=== PATIENT | male | born 1945 | race Caucasian/White ===

== ENCOUNTER → 2017-01-16 | Outpatient (CLI) | payer OTHER, MEDICARE ==
[~2017-01-16] MED LIST: ACCUNEB0.63 MG/3 IH; ADVAIR 500-501 EACH INH; ASPIRIN325 PO; ATENOLOL 25MG T25 M1 PO; CALCIUM 600 +1 EAC5 PO; CARTIA XT PO; CEFTIN 250250 MG/5 M PO; CLONAZEPAM 0.50.5 M1 PO; ELIQUIS5 MG PO; FINASTERIDE5 MG PO; FISH OIL 1,0001 EAC9 PO; FUROSEMIDE 40 M40 M1 PO; IBUPROFEN 200200 M1 PO; LEVAQUIN 500 M500 M2 PO; LEVOTHYROXIN0.025 MG PO; LIVALO2 MG PO; LO-DOSE ASPIRIN81 M1 PO; MIRAPEX 0.250.25 M1 PO; MUCINEX600 MG PO; NEURONTIN 300300 M1 PO; OMEPRAZOLE 20 M20 MG PO; PACERONE 200 M200 M1 PO; POTASSIUM20 PO; PRADAXA150 MG PO; PREDNISONE 5 MG5 M1 PO; PROAIR HFA8.5 GM IH; SPIRIVA INH; TAMSULOSIN HCL0.4 MG PO; VENTOLIN HFA 1818 GM INH; ZPAK PO; ZYRTEC10 M2 PO; [UNRECOGNIZED DRUG - OTHER] PO
== END ==
LOC: MRI 11:46
DX: L97.522 Non-pressure chronic ulcer of other part of left foot with fat layer exposed (principal); M10.072 Idiopathic gout, left ankle and foot

== ENCOUNTER 2017-01-26 05:56 | Day surgery (SDC) | payer OTHER, MEDICARE ==
[~2017-01-26] VITALS: Ht 185.4 cm; Wt 90.7 kg
--- NOTE | ~2017-01-26 | S ---
[facility] [address] [place] [address] SURGICAL PATH RPT PROCEDURE Name: ANDI JEROME Room #: 150-4 [facility] M.R.#: [id number] Admission: 01/26/17 Date of : 43 Discharge: Report #: [id number] Path Case #: [id number] PATHOLOGY REPORT DRAFT COLLECTION DATE: 01/26/2017 RECEIVED DATE: 01/26/2017 SPECIMEN(S) RECEIVED: A.Left third toe
[~2017-01-26 05:56] MED LIST changes: +ALBUTEROL2.5 MG/31 INH; +ASPIRIN PO; +ATENOLOL PO; +CEPHALEXIN500 MG PO; +IBUPROFEN200 M2 PO; +MIRAPEX1 MG PO; +OXYGEN NASAL; +PACERONE 200 M200 MG PO
[2017-01-26 11:29] LABS: HEMATOCRIT 45.3 % (42.0-52.0); MCH 35.2 pg (26.0-34.0); MCHC 35.3 g/dL (28.0-37.0); MCV 99.7 fL (80.0-100.0); RBC 4.54 mil/uL (4.50-6.00); RDW 13.3 % (10.5-14.5); WBC 12.7 thou/uL (4.0-11.0)
[2017-01-26 11:37] LABS: CREATININE 1.3 mg/dL (0.7-1.3); POTASSIUM 4.1 mmol/L (3.5-5.1)
[2017-01-26 12:00] VITALS: BP 126/88
== END 2017-01-26 13:50 ==
LOC: OR 05:56 → TBA 05:56 → OR 13:09
PROVIDERS: Podiatrist Foot & Ankle Surgery
DX: S43.084A Other dislocation of right shoulder joint, initial encounter (principal); X58.XXXA Exposure to other specified factors, initial encounter; Y93.89 Activity, other specified; Y92.89 Other specified places as the place of occurrence of the external cause; Y99.8 Other external cause status
CPT/HCPCS: 50010; 50101; 50386; 57091; 70005

== ENCOUNTER 2017-06-10 12:28 | Inpatient (IN) | payer OTHER, MEDICARE ==
[~2017-06-10] VITALS: Ht 188 cm; Wt 104.3 kg
--- NOTE | ~2017-06-10 | HC ---
[facility] [place] [address] CONSULTATION Name: ANDI JEROME Room #: 443-P [facility] IN M.R.#: [id number] Admission: 06/10/17 Attend Phys: Mukund Burch MD Discharge: Date of : 43 Report #: [id number] THIS REPORT FOR: //name// CC: Mukund Muhammad REASON FOR CONSULTATION: I was asked to evaluate concerning right lower extremity cellulitis. HISTORY OF PRESENT ILLNESS: The patient is a 71-year-old with chronic lymphedema. He has had outpatient workup without any specific correctable etiology. He has had vascular workup. He does have atrial fibrillation, but no ongoing congestive heart failure. No renal disease noted. He has had increasing swelling involving his right lower extremity greater than his left. He developed increased erythema without fever or chills. He has moderate amount of tenderness in his right pretibial skin. He does have degenerative arthritis and has had cortisol injections in his joint. He does take prednisone on a daily basis. ALLERGIES: AMOXICILLIN with rash, does tolerate cephalosporins. MEDICATIONS: As noted on his MAR including vancomycin. His other medications as noted on his MAR. PAST MEDICAL HISTORY: COPD, atrial fibrillation, cardiomyopathy, peripheral neuropathy, C5 disk disease, right foot fracture, cataract surgery, bilateral inguinal herniorrhaphy, hemorrhoidectomy, hypothyroid, and TURP. FAMILY HISTORY: Noncontributory. SOCIAL HISTORY: He is a past smoker, no significant alcohol intake. REVIEW OF SYSTEMS: Denies any cough, sputum, nausea, vomiting, diarrhea, dysuria, or frequency. PHYSICAL EXAMINATION: VITAL SIGNS: He is afebrile, hemodynamically stable. GENERAL: He is alert and cooperative and pleasant, in no acute distress. HEENT: Unremarkable. NECK: Supple. No adenopathy. LUNGS: Clear. HEART: Regular, without murmur. ABDOMEN: Soft, without any hepatosplenomegaly or mass. EXTREMITIES: Left lower extremity had 2+ edema with compression wraps in place. Right lower extremity had 4+ edema with erythema extending from his toes up to his proximal calf. He had tenderness in the pretibial skin. No ulcerations. No tinea pedis. No lymphangitis medial thigh. No groin [address] [address] CONSULTATION Name: ANDI JEROME Room #: 443-P [facility] IN [facility].#: [id number] Admission: 06/10/17 Attend Phys: Mukund Burch MD Discharge: Date of : 43 Report #: [id number] tenderness. He had decreased sensation in both feet. LABORATORY STUDIES: Sodium 139, potassium 3.7, bicarb of 34, and creatinine 1.1. Hemoglobin 13, platelet count 233,000, and white count 7.7 with 73% segs. Vancomycin trough 14. Urinalysis unremarkable. Ultrasound of the right lower extremity negative for DVT. Chest x-ray with no acute infiltrates. IMPRESSION: A 71-year-old with chronic lymphedema, associated cellulitis with peripheral neuropathy. He had adequate pulses in his foot. His outpatient workup failed to identify any venous abnormalities per the patient report. Suspecting cardiac etiology or primary lymphatic disease. He does have a patent foramen ovale and an atrial septal aneurysm. The patient is also allergic to AMOXICILLIN. Recommend continue his antibiotic coverage with cefazolin. He will need more leg elevation and diuretics to control his edema. Once this is under control, can begin compression when the patent is up. I discussed with the patient and his different modalities to control his edema once he gets discharged. In the meantime, we will use strict bed elevation to control swelling. <ELECTRONICALLY SIGNED> By: Newton Rodriguez MD 06/13/17 1808 1820 1249 Newton Rodriguez MD /nt
--- NOTE | ~2017-06-10 | D ---
[facility] [place] [address] DISCHARGE SUMMARY Name: QUEENIERADHA Room #: 443-P [facility] IN M.R.#: [id number] Admission: 06/10/17 Attend Phys: Mukund Burch MD Discharge: 06/15/17 Date of : 43 Report #: [id number] THIS REPORT FOR: //name// CC: Mukund Muhammad DATE OF SERVICE: 06/15/2017 HISTORY OF PRESENT ILLNESS: The patient is a 71-year-old man who was admitted to the hospital for right lower extremity cellulitis. Please refer to the admission H and P for details. HOSPITALIZATION COURSE: The patient was hospitalized at [facility]. Initially, the patient was treated with vancomycin. Infectious Disease specialist was consulted. The patient was switched to the Ancef. The patient has chronic lower extremity swelling, and he also has a history of congestive heart failure with diastolic dysfunction. Doppler of the lower extremity was obtained that showed no DVT. With diuretics as well as lower extremity wraps, his swelling improved significantly. With the reduction of his swelling, cellulitis also started to improve. This morning, his erythema has almost resolved. The patient has no pain. He feels comfortable and he is at baseline. He will be discharged home on oral antibiotics, and follow up in the lymphedema clinic. DISCHARGE DIAGNOSES: 1. Right lower extremity cellulitis, much better. 2. Chronic lymphedema, will be treated as an outpatient in lymphedema clinic. Diuretics will be continued. SECONDARY DIAGNOSES: Include congestive heart failure with diastolic dysfunction, history of atrial fibrillation, anticoagulated with Eliquis. Hypothyroidism, chronic obstructive pulmonary disease. DISCHARGE MEDICATIONS: Please refer to the medication reconciliation list. The patient will be treated with Keflex for 10 days for his right lower extremity cellulitis. DISPOSITION: The patient is discharged to home. FOLLOWUP PLAN: [facility] [address] [place] [address] DISCHARGE SUMMARY Name: ANDI JEROME Room #: 443-P [facility]#: [id number] Admission: 06/10/17 Attend Phys: Mukund Burch MD Discharge: 06/15/17 Date of : 44 Report #: [id number] 1. Follow up with the primary care physician in 1-2 weeks. 2. Follow up in lymphedema clinic. By: 1052 30 Jagdish Power MD /nt
--- NOTE | ~2017-06-10 | EKG ---
[address] [address] ELECTROCARDIOGRAM REPORT Name: ANDI JERMOE Room #: 443- ADM IN M.R.#: [id number] Admission: 06/10/17 Attend Phys: Mukund Burch MD Discharge: Date of : 43 Report #: [id number] THIS REPORT FOR: //name// [facility] Test Date: 2017-06-11 Test Time: 09:03:44 Pat Name: ANDI JEROME Department: Room: 443 Gender: M Manager Care: RON : 1945 Requested By: Viviana Brown Order Number: [id number] MD: Trey Arceo Measurements Intervals [place] Rate: 70 P: 63 MA: 190 QRS: 41 QRSD: 104 T: 79 QT: 406 QTc: 439 Interpretive Statements Sinus rhythm Atrial premature complexes Low voltage, extremity leads Baseline wander in lead(s) V3 Compared to ECG 02/15/2012 15:06:28 Atrial premature complex(es) now present Electronically Signed On 06-11-2017 11:39:27 CDT by Trey Arceo [email or web address] <ELECTRONICALLY SIGNED> By: Trey Arceo MD 06/11/17 1139 2 2 Trey Arceo MD /EPI
[2017-06-10 12:29] VITALS: BP 120/61
[2017-06-10 13:25] LABS: HEMATOCRIT 40.5 % (42.0-52.0); HEMOGLOBIN 14.5 gm/dL (14.0-18.0); MCH 35.8 pg (26.0-34.0); MCHC 35.7 g/dL (28.0-37.0); MCV 100.2 fL (80.0-100.0); PLATELET COUNT 256 thou/uL (150-400); RBC 4.04 mil/uL (4.50-6.00); RDW 13.4 % (10.5-14.5); WBC 8.9 thou/uL (4.0-11.0)
[2017-06-10 13:26] LABS: MANUAL DIFF YES
[2017-06-10 13:31] LABS: CALCIUM 8.7 mg/dL (8.5-10.1); CREATININE 1.5 mg/dL (0.7-1.3); POTASSIUM 4.2 mmol/L (3.5-5.1)
[2017-06-10 13:37] LABS: ALBUMIN 3.3 g/dL (3.4-5.0); DIRECT BILIRUBIN 0.2 mg/dL (<0.1-0.3); TOTAL BILIRUBIN 0.9 mg/dL (<0.1-1.0); TOTAL PROTEIN 6.7 g/dL (6.4-8.2)
[2017-06-10] MEDS ORDERED: SPIRIVA INH (14:01)
[2017-06-10] MEDS ORDERED: DEMADEX20 MG PO (14:03)
[2017-06-10 14:04] LABS: TOTAL CELL COUNT 100
[2017-06-10 14:05] LABS: POLYCHROMASIA SLIGHT
[2017-06-10] MEDS ORDERED: SYNTHROID50 MCG PO (14:05)
[2017-06-10] MEDS ORDERED: TYLENOL EXTRA500 MG PO (14:08)
[2017-06-10] MEDS ORDERED: ELIQUIS5 MG PO (14:09)
[2017-06-10 14:58] VITALS: BP 110/56
[2017-06-10 15:01] LABS: URINE BILIRUBIN NEGATIVE (Negative); URINE BLOOD NEGATIVE (Negative); URINE COLOR YELLOW; URINE GLUCOSE-RANDOM* NEGATIVE (Negative); URINE KETONES NEGATIVE (Negative); URINE NITRITE NEGATIVE (Negative); URINE PROTEIN (DIPSTICK) NEGATIVE (Negative); URINE UROBILINOGEN 0.2 E.U./dl (0.2-1.0)
[2017-06-10 15:45] VITALS: BP 115/61
[2017-06-10 19:30] VITALS: BP 107/65
[2017-06-11 04:35] VITALS: BP 112/61
[2017-06-11 05:26] LABS: HEMATOCRIT 36.3 % (42.0-52.0); HEMOGLOBIN 12.8 gm/dL (14.0-18.0); MCH 35.8 pg (26.0-34.0); MCHC 35.3 g/dL (28.0-37.0); MCV 101.5 fL (80.0-100.0); RBC 3.58 mil/uL (4.50-6.00); RDW 13.3 % (10.5-14.5); WBC 7.6 thou/uL (4.0-11.0)
[2017-06-11 05:46] LABS: ALBUMIN 2.9 g/dL (3.4-5.0); CALCIUM 8.2 mg/dL (8.5-10.1); CREATININE 1.2 mg/dL (0.7-1.3); POTASSIUM 3.7 mmol/L (3.5-5.1); TOTAL BILIRUBIN 0.4 mg/dL (<0.1-1.0); TOTAL PROTEIN 5.9 g/dL (6.4-8.2)
[2017-06-11 08:00] VITALS: BP 93/52
[2017-06-11 16:00] VITALS: BP 113/72
[2017-06-11 19:05] VITALS: BP 127/74
[2017-06-12 04:51] LABS: MCH 35.8 pg (26.0-34.0); MCV 102.1 fL (80.0-100.0); PLATELET COUNT 233 thou/uL (150-400); RBC 3.63 mil/uL (4.50-6.00); RDW 13.2 % (10.5-14.5); WBC 7.7 thou/uL (4.0-11.0)
[2017-06-12 04:59] LABS: CALCIUM 8.3 mg/dL (8.5-10.1); CREATININE 1.1 mg/dL (0.7-1.3); MAGNESIUM 2.3 mg/dL (1.8-2.4); POTASSIUM 3.7 mmol/L (3.5-5.1)
[2017-06-12 05:00] LABS: MANUAL DIFF YES
[2017-06-12 05:35] VITALS: BP 97/59
[2017-06-12 08:14] VITALS: BP 121/70
[2017-06-12 08:50] LABS: ABSOLUTE NEUTROPHILS 5.6 thou/uL (1.4-8.2); METAMYELOCYTES 6 %; TOTAL CELL COUNT 100
[2017-06-12 08:51] LABS: ANISOCYTOSIS SLIGHT
[2017-06-12 16:04] VITALS: BP 161/75
[2017-06-12 19:35] VITALS: BP 128/78
[2017-06-13 03:45] VITALS: BP 127/65
[2017-06-13 08:10] VITALS: BP 130/74
[2017-06-13 16:27] VITALS: BP 111/67
[2017-06-13 22:39] VITALS: BP 118/64
[2017-06-14 03:17] VITALS: BP 115/66
[2017-06-14 07:34] VITALS: BP 123/65
[2017-06-14 09:42] LABS: HEMATOCRIT 39.6 % (42.0-52.0); HEMOGLOBIN 14.2 gm/dL (14.0-18.0); MCV 100.8 fL (80.0-100.0); RBC 3.93 mil/uL (4.50-6.00)
[2017-06-14 09:46] LABS: MCH 36.2 pg (26.0-34.0); MCHC 35.9 g/dL (28.0-37.0); RDW 13.2 % (10.5-14.5); WBC 8.2 thou/uL (4.0-11.0)
[2017-06-14 09:58] LABS: ANION GAP < 0 mmol/L (7-16); BUN 21 mg/dL (7-18); CALCIUM 8.7 mg/dL (8.5-10.1); CHLORIDE 101 mmol/L (98-107); CO2 39 mmol/L (21-32); CREATININE 1.1 mg/dL (0.7-1.3); GLUCOSE 110 mg/dL (74-106); POTASSIUM 3.6 mmol/L (3.5-5.1); SODIUM 139 mmol/L (136-145)
[2017-06-14 15:06] VITALS: BP 107/60
[2017-06-14 19:37] VITALS: BP 103/57
[2017-06-15 03:07] VITALS: BP 110/57
[2017-06-15 07:29] VITALS: BP 100/61
[2017-06-15] MEDS ORDERED: PACERONE 200 M200 M1 PO (10:56)
[2017-06-15] MEDS ORDERED: KEFLEX500 MG PO (10:56)
[2017-06-15] MEDS ORDERED: DEMADEX20 MG PO (10:56)
[2017-06-15 11:20] VITALS: BP 100/61
== END 2017-06-15 14:25 | disposition home or self-care (01) | DRG 602 ==
LOC: ER 12:28 → 4S 14:45 → EROBS 14:45 → 4S 15:24 → ENTRNSPT 06-15 14:17 → EDTRNSPTSTS 06-15 14:20 → 4S 06-15 14:25
PROVIDERS: Internal Medicine Cardiovascular Disease; Nurse Practitioner
DX: L03.115 Cellulitis of right lower limb (principal); I50.33 Acute on chronic diastolic (congestive) heart failure; E44.0 Moderate protein-calorie malnutrition; I42.9 Cardiomyopathy, unspecified; M50.30 Other cervical disc degeneration, unspecified cervical region; J44.9 Chronic obstructive pulmonary disease, unspecified; G62.9 Polyneuropathy, unspecified; I89.0 Lymphedema, not elsewhere classified; K21.9 Gastro-esophageal reflux disease without esophagitis; I48.0 Paroxysmal atrial fibrillation; I87.2 Venous insufficiency (chronic) (peripheral); E03.9 Hypothyroidism, unspecified; Z88.1 Allergy status to other antibiotic agents; Z98.49 Cataract extraction status, unspecified eye; Z87.891 Personal history of nicotine dependence; Z87.81 Personal history of (healed) traumatic fracture; Z79.01 Long term (current) use of anticoagulants; Z79.899 Other long term (current) drug therapy; Z99.81 Dependence on supplemental oxygen; Z68.29 Body mass index [BMI] 29.0-29.9, adult; Z79.82 Long term (current) use of aspirin
CPT/HCPCS: 10100; 10195

== ENCOUNTER 2017-09-16 17:58 | Emergency (ER) | payer OTHER, MEDICARE ==
[~2017-09-16] VITALS: Ht 185.4 cm; Wt 95.3 kg
[~2017-09-16 17:58] MED LIST changes: +DEMADEX20 MG PO; +KEFLEX500 MG PO; +SYNTHROID50 MCG PO; +TYLENOL EXTRA500 MG PO
[2017-09-16] MEDS ORDERED: MOBIC15 MG PO (18:45)
[2017-09-16 19:03] LABS: HEMATOCRIT 39.9 % (42.0-52.0); HEMOGLOBIN 13.9 gm/dL (14.0-18.0); MCH 35.5 pg (26.0-34.0); MCHC 34.9 g/dL (28.0-37.0); MCV 101.8 fL (80.0-100.0); RBC 3.93 mil/uL (4.50-6.00); RDW 13.2 % (10.5-14.5); WBC 12.1 thou/uL (4.0-11.0)
[2017-09-16 19:16] LABS: APTT 27.4 Seconds (24.5-32.8); INR 1.1; PROTIME 10.9 Seconds (9.3-11.4)
[2017-09-16 20:25] VITALS: BP 133/80
[2017-09-17] MEDS ORDERED: MUCINEX600 MG PO (22:05)
== END 2017-09-16 20:26 | disposition home or self-care (01) ==
LOC: ER 17:58
PROVIDERS: Emergency Medicine
DX: S46.212A Strain of muscle, fascia and tendon of other parts of biceps, left arm, initial encounter (principal); N18.9 Chronic kidney disease, unspecified; Z88.0 Allergy status to penicillin; J44.1 Chronic obstructive pulmonary disease with (acute) exacerbation; I48.91 Unspecified atrial fibrillation; I42.9 Cardiomyopathy, unspecified; E03.9 Hypothyroidism, unspecified; G25.81 Restless legs syndrome; Z98.890 Other specified postprocedural states; Z87.891 Personal history of nicotine dependence; X50.0XXA Overexertion from strenuous movement or load, initial encounter; Y93.89 Activity, other specified; Y92.89 Other specified places as the place of occurrence of the external cause; Y99.8 Other external cause status

== ENCOUNTER 2017-09-17 20:49 | Inpatient (IN) | payer OTHER, MEDICARE ==
[~2017-09-17] VITALS: Ht 185.4 cm; Wt 97.5 kg
--- NOTE | ~2017-09-17 | 2DMMODE ---
[address] [address] 2 D/M-MODE ECHOCARDIOGRAM Name: ROGERRADHAANDI Room #: 439-P ADM IN .R.#: [id number] Admission: 09/17/17 Attend Phys: Jluis Power Discharge: Date of : 43 Date of Service: 09/19/17 1003 Report #: [id number] THIS REPORT FOR: //name// APPROVED REPORT Study performed: 09/19/2017 09:28:28 EXAM: Comprehensive 2D Echocardiogram Patient Location: Bedside Room #: 439 Status: routine BSA: 2.20 HR: 59 bpm BP: 126/57 mmHg Other Information Study Quality: Adequate Indications Congestive Heart Failure COPD Atrial Fibrillation Dyspnea Left Ventricle The left ventricle is normal size. There is normal left ventricular wall thickness. The left ventricular systolic function is normal. The left ventricular ejection fraction is within the normal range. LVEF is 55-60%. Right Ventricle Right ventricle is at the upper limits of normal. The right ventricular systolic function is normal. Atria Left atrium is dilated. Right atrium is dilated. Aortic Valve The aortic valve is normal in structure. Mitral Valve The mitral valve is normal in structure. Tricuspid Valve The tricuspid valve is normal in structure. [address] [address] 2 D/M-MODE ECHOCARDIOGRAM Name: ANDI JEROME Room #: 439-P ADM IN M.R.#: [id number] Admission: 09/17/17 Attend Phys: Jluis Power Discharge: Date of : 43 Date of Service: 09/19/17 1003 Report #: [id number] Pulmonic Valve Pulmonic valve is not well visualized. Great Vessels The aortic root is normal in size. IVC is not well visualized. Pericardium There is no pericardial effusion. <Conclusion> The left ventricle is normal size. LVEF is 55-60%. Left atrium is dilated. Right atrium is dilated. The aortic valve is normal in structure. The mitral valve is normal in structure. The tricuspid valve is normal in structure. Pulmonic valve is not well visualized. There is no pericardial effusion. <ELECTRONICALLY SIGNED> By: Kalen Warner MD 09/19/17 1003 02 02 Kalen Warner MD /INF
--- NOTE | ~2017-09-17 | HC ---
[facility] [place] [address] CONSULTATION Name: QUEENIEANDI Lentz Room #: 439-P [facility] IN M.R.#: [id number] Admission: 09/17/17 Attend Phys: Terry Mathis MD Discharge: Date of : 44 Report #: [id number] THIS REPORT FOR: //name// CC: Gutierrez Muhammad REASON FOR CONSULTATION: I was asked to evaluate concerning left upper extremity swelling and cellulitis. HISTORY OF PRESENT ILLNESS: The patient is a 72-year-old with history of lymphedema and is anticoagulated for atrial fibrillation with Eliquis. 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 This began to swell. He was seen in the Emergency Room and diagnosed with most likely biceps injury. Subsequently, he had significant swelling develop in the left upper extremity and he returned for further evaluation. He now has redness extending from his hand up to his upper arm, near his axilla. No fever, chills or sweats. Moderate amount of discomfort. He had a CT scan which showed fluid in the mid upper arm. No bony abnormality. No report of muscle tear in the report. His Eliquis has been placed on hold. REVIEW OF SYSTEMS: No cardiopulmonary, GI or complaints. ALLERGIES: AMOXICILLIN, but tolerates cephalosporins. PAST MEDICAL HISTORY, FAMILY HISTORY, AND SOCIAL HISTORY: Unchanged from history and physical, which was reviewed in detail. Also noted in my previous consultation earlier this year. MEDICATIONS: As noted on his MAR including vancomycin, Levaquin and clindamycin. He does take 5 mg of prednisone a day. Other medications as noted. PHYSICAL EXAMINATION: VITAL SIGNS: Afebrile and hemodynamically stable. Alert and cooperative and pleasant, in no acute distress. He is on oxygen per nasal cannula. HEENT: Unremarkable. NECK: Supple. LUNGS: Decreased breath sounds bilaterally. HEART: Irregular without appreciable murmur. ABDOMEN: Soft, nontender, no hepatosplenomegaly or mass. EXTREMITIES: Lower extremities noted compression stockings bilaterally. Left upper extremity had ecchymosis extending from the upper arm to his fingers. There were several skin tears with serous drainage from them. He had 4+ edema. There was erythema and warmth throughout the upper arm. No axillary adenopathy. LABORATORY STUDIES: CT scan as noted above. Sodium 133, potassium 5.3, [address] [address] CONSULTATION Name: ANDI JEROME Room #: 439-P [facility] IN .R.#: [id number] Admission: 09/17/17 Attend Phys: Terry Mathis MD Discharge: Date of : 44 Report #: [id number] bicarbonate 29, creatinine 1.6, lactate was 2.4 last evening. INR 1.3. Hemoglobin 14.6, white count 19.1, platelet count is 311,000, 7% bands. Blood cultures are pending. Drainage from his arm was cultured with Gram stain showing no WBCs and few gram-positive cocci. Today's creatinine is down to 1.5. WBC is down to 13. IMPRESSION AND RECOMMENDATIONS: A 72-year-old with steroid-dependent chronic obstructive pulmonary disease, atrial fibrillation on anticoagulation, had a soft tissue injury to his left bicep several days ago with bleeding into the soft tissues, now with secondary infection likely. Hard to know how much of this is reactive erythroderma from his bleeding, but his white count has been elevated and we will treat as a secondary skin and soft tissue infection. Would recommend continuing with ceftriaxone. We do have a swab culture of one of the superficial skin tears and we will await this culture result. The patient will continue with ceftriaxone. I have discussed with nursing staff regarding mild compression and to really work on elevation today. His anticoagulation has been placed on hold. <ELECTRONICALLY SIGNED> By: Newton Rodriguez MD 09/19/17 1412 1723 2045 Newton Rodriguez MD /nt
--- NOTE | ~2017-09-17 | HC ---
[facility] [address] [place] [address] CONSULTATION Name: QUEENIEANDI Lentz Room #: 439-P [facility] IN ..#: [id number] Admission: 09/17/17 Attend Phys: Terry Mathis MD Discharge: 09/22/17 Date of : 44 Report #: [id number] THIS REPORT FOR: //name// CC: Gloria Mathis DATE OF SERVICE: 09/19/2017 HISTORY OF PRESENT ILLNESS: This is a 72-year-old male patient who was evaluated by me for a stroke protocol. The patient had acute onset of double vision last night. It came spontaneously without any trauma. He also noticed some ataxia, but that is difficult to tell because he has difficulty walking even in the baseline because of knee problems. His diplopia became worse this morning as I understand and he noticed that when he got up and noticed even more when he was eating breakfast. He has a known history of atrial fibrillation and he came up with pretty significant problem with the left upper extremity and they thought that he might be bleeding from there, so his anticoagulation was stopped. He still has some diplopia, which is moderately severe. REVIEW OF SYSTEMS: Positive for left arm problem in this patient. He has a history of atrial fibrillation. He does have a history of restless leg syndrome. He has a history of lymphedema. He had some back pain issues in the past. This was a relevant 14-point review of system, which was carried out. PAST MEDICAL HISTORY: Positive for atrial fibrillation. FAMILY HISTORY: Negative for any early age stroke. SOCIAL HISTORY: He drinks occasionally, but does not smoke. PHYSICAL EXAMINATION: The patient's examinations indicate that he is alert. He is responsive. He can follow simple commands. His speech, concentration, fund of knowledge, and memory is at his baseline. Cranial nerve examination 2-12 to me, it mostly looks unremarkable, but he does complain of diplopia especially when he looked down towards his nose. He is not a diabetic. He is somewhat weak in all 4 extremities, but I do not think it is asymmetrical. He has no meningeal sign. He has a history of atrial fibrillation. There is no respiratory difficulty. He has a history of edema. His blood pressure is 116/62, his pulse rate is 67, his temperature is 98.5. LABORATORY DATA: His MCV for some reason is high at 102. His last vitamin B12 was normal. He did have a CT angio, which was reviewed and it looks mostly unremarkable. His MRI was ordered stat, but it is not done yet. IMPRESSION: It would appear that this patient had an ischemic event in the posterior fossa. We need an MRI to confirm or rule it out. Depending upon the [address] [address] CONSULTATION Name: ROGERRADHAANDI Room #: 439-P [facility] IN M.R.#: [id number] Admission: 09/17/17 Attend Phys: Terry Mathis MD Discharge: 09/22/17 Date of : 43 Report #: [id number] results of MRI, he may need some further workup. RECOMMENDATIONS: 1. Stat MRI. 2. Push fluids since he got some contrast. 3. He needs vitamin B12, but that has already been checked. Thank you very much for this referral and more than 50 minutes of time was spent taking care of this patient today and majority of that time was spent counseling the patient. <ELECTRONICALLY SIGNED> By: Ezekiel Willingham MD 09/24/17 1815 1437 8390 Ezekiel Willingham MD /nt
--- NOTE | ~2017-09-17 | EKG ---
[place] [address] [facility] [place] [address] ELECTROCARDIOGRAM REPORT Name: ANDI JEROME Room #: 439- ADM IN M.R.#: [id number] Admission: 09/17/17 Attend Phys: Terry Mathis MD Discharge: Date of : 44 Report #: [id number] THIS REPORT FOR: //name// [facility] Test Date: 2017-09-20 Test Time: 12:04:26 Pat Name: ANDI JEROME Department: Room: 439 Gender: M Mechanical Planner: STARLING. Pollack : 1945 Requested By: Trey Arceo Order Number: [id number] MD: Stephen Heller Measurements Intervals [place] Rate: 70 P: 0 [place]: 59 QRS: 65 QRSD: 104 T: 78 QT: 393 QTc: 425 Interpretive Statements Sinus rhythm Low voltage, extremity leads Nonspecific ST segment abnormality Compared to ECG 09/18/2017 16:08:48 No significant change was found Electronically Signed On 09-20-2017 17:05:09 ANDROID ARCHITECT by Stephen Heller [email or web address] <ELECTRONICALLY SIGNED> By: Stephen Heller MD, [facility] 09/20/17 9645 1204 1204 Stephen Heller MD, [facility] /EPI
--- NOTE | ~2017-09-17 | EKG ---
[address] [place] [address] ELECTROCARDIOGRAM REPORT Name: ANDI JEROME Room #: 439-P ADM IN M.R.#: [id number] Admission: 09/17/17 Attend Phys: Gutierrez Hardy DO Discharge: Date of : 43 Report #: [id number] THIS REPORT FOR: //name// [facility] Test Date: 2017-09-18 Test Time: 16:08:48 Pat Name: ANDI JEROME Department: Room: 439 P Gender: M Aircraft Avionics Technician: Jluis PYLE : 1945 Requested By: Katja Bryan Order Number: [id number] MD: Trey Arceo Measurements Intervals [place] Rate: 80 P: 73 [place]: 179 QRS: 40 QRSD: 109 T: 44 QT: 371 QTc: 428 Interpretive Statements Sinus rhythm Low voltage, extremity leads Compared to ECG 06/11/2017 09:03:44 Atrial premature complex(es) no longer present Electronically Signed On 09-18-2017 20:49:38 [employer] by Trey Arceo [email or web address] <ELECTRONICALLY SIGNED> By: Trey Arceo MD 09/18/172048 1608 1608 Trey Arceo MD /EPI
[~2017-09-17 20:49] MED LIST changes: +MOBIC15 MG PO
[2017-09-17 20:51] VITALS: BP 139/80
[2017-09-17 21:23] LABS: HEMATOCRIT 42.2 % (42.0-52.0); HEMOGLOBIN 14.6 gm/dL (14.0-18.0); MCH 35.5 pg (26.0-34.0); MCHC 34.7 g/dL (28.0-37.0); MCV 102.5 fL (80.0-100.0); PLATELET COUNT 311 thou/uL (150-400); RBC 4.11 mil/uL (4.50-6.00); RDW 13.2 % (10.5-14.5); WBC 19.1 thou/uL (4.0-11.0)
[2017-09-17 21:27] LABS: CALCIUM 9.1 mg/dL (8.5-10.1); CREATININE 1.6 mg/dL (0.7-1.3); POTASSIUM 5.3 mmol/L (3.5-5.1)
[2017-09-17 21:39] LABS: APTT 29.6 Seconds (24.5-32.8); INR 1.3; PROTIME 12.8 Seconds (9.3-11.4)
[2017-09-17 21:54] LABS: ABSOLUTE NEUTROPHILS 17.6 thou/uL (1.4-8.2)
[2017-09-17 21:57] LABS: MACROCYTES 2+
[2017-09-17] MEDS ORDERED: MUCINEX600 MG PO (22:05)
[2017-09-17 22:18] VITALS: BP 119/63
[2017-09-17 22:40] VITALS: BP 125/77
[2017-09-18 04:00] VITALS: BP 102/58
[2017-09-18 07:08] LABS: HEMATOCRIT 37.9 % (42.0-52.0); HEMOGLOBIN 13.2 gm/dL (14.0-18.0); MCH 35.8 pg (26.0-34.0); MCHC 34.7 g/dL (28.0-37.0); MCV 103.2 fL (80.0-100.0); RBC 3.67 mil/uL (4.50-6.00); RDW 13.3 % (10.5-14.5)
[2017-09-18 07:21] LABS: CALCIUM 8.6 mg/dL (8.5-10.1); CREATININE 1.5 mg/dL (0.7-1.3); POTASSIUM 4.6 mmol/L (3.5-5.1)
[2017-09-18 08:55] VITALS: BP 118/68
[2017-09-18 16:00] VITALS: BP 129/47
[2017-09-18 19:58] VITALS: BP 143/70
[2017-09-19 03:55] VITALS: BP 126/57
[2017-09-19 05:57] LABS: HEMATOCRIT 35.4 % (42.0-52.0); HEMOGLOBIN 12.1 gm/dL (14.0-18.0); MCH 35.1 pg (26.0-34.0); MCHC 34.1 g/dL (28.0-37.0); MCV 102.9 fL (80.0-100.0); PLATELET COUNT 271 thou/uL (150-400); RBC 3.44 mil/uL (4.50-6.00); RDW 13.1 % (10.5-14.5); WBC 9.7 thou/uL (4.0-11.0)
[2017-09-19 06:07] LABS: CALCIUM 8.5 mg/dL (8.5-10.1); CREATININE 1.2 mg/dL (0.7-1.3); MAGNESIUM 2.1 mg/dL (1.8-2.4); POTASSIUM 4.4 mmol/L (3.5-5.1)
[2017-09-19 07:56] LABS: ABSOLUTE NEUTROPHILS 8.4 thou/uL (1.4-8.2); ANISOCYTOSIS 1+
[2017-09-19 08:00] VITALS: BP 116/62
[2017-09-19 15:25] VITALS: BP 116/63
[2017-09-19 20:13] VITALS: BP 108/62; BP 143/121
[2017-09-20 00:09] VITALS: BP 104/61
[2017-09-20 04:45] VITALS: BP 118/67
[2017-09-20 08:05] VITALS: BP 107/59
[2017-09-20 16:35] VITALS: BP 107/46
[2017-09-20 19:33] VITALS: BP 140/61
[2017-09-21 01:38] VITALS: BP 88/47
[2017-09-21 03:37] LABS: ABSOLUTE NEUTROPHILS 5.7 thou/uL (1.4-8.2); BASOPHILS 0.5 % (0.0-2.0); EOSINOPHILS 1.3 % (0.0-3.0); HEMATOCRIT 32.5 % (42.0-52.0); HEMOGLOBIN 11.3 gm/dL (14.0-18.0); MCH 35.5 pg (26.0-34.0); MCHC 34.9 g/dL (28.0-37.0); MCV 101.9 fL (80.0-100.0); MONOCYTES 10.1 % (1.0-8.0); PLATELET COUNT 290 thou/uL (150-400); POLYS 81.1 % (36.0-66.0); RBC 3.19 mil/uL (4.50-6.00)
[2017-09-21 04:14] LABS: ALBUMIN 2.5 g/dL (3.4-5.0); CALCIUM 8.2 mg/dL (8.5-10.1); CREATININE 1.1 mg/dL (0.7-1.3); MAGNESIUM 1.8 mg/dL (1.8-2.4); POTASSIUM 3.9 mmol/L (3.5-5.1); TOTAL BILIRUBIN 0.5 mg/dL (<0.1-1.0); TOTAL PROTEIN 5.4 g/dL (6.4-8.2)
[2017-09-21 05:41] VITALS: BP 118/66
[2017-09-21 07:50] VITALS: BP 111/65
[2017-09-21 15:55] VITALS: BP 118/69
[2017-09-21 20:05] VITALS: BP 110/58
[2017-09-22 03:54] VITALS: BP 104/67
[2017-09-22 07:45] VITALS: BP 112/63
[2017-09-22] MEDS ORDERED: KEFLEX500 M1 PO (14:25)
[2017-09-22 14:33] VITALS: BP 112/63
[2017-09-22 17:52] VITALS: BP 112/63
== END 2017-09-22 15:47 | disposition home health service (06) | DRG 602 ==
LOC: ER 20:49 → 4S 21:36 → EROBS 21:36 → 4S 22:18
PROVIDERS: Internal Medicine; Nurse Practitioner Acute Care; Physician Assistant; Registered Nurse
DX: L03.114 Cellulitis of left upper limb (principal); I50.33 Acute on chronic diastolic (congestive) heart failure; N17.9 Acute kidney failure, unspecified; E87.2 Acidosis; I42.8 Other cardiomyopathies; J44.9 Chronic obstructive pulmonary disease, unspecified; G62.9 Polyneuropathy, unspecified; E03.9 Hypothyroidism, unspecified; G25.81 Restless legs syndrome; D72.829 Elevated white blood cell count, unspecified; I11.0 Hypertensive heart disease with heart failure; I89.0 Lymphedema, not elsewhere classified; K21.9 Gastro-esophageal reflux disease without esophagitis; I48.0 Paroxysmal atrial fibrillation; I87.2 Venous insufficiency (chronic) (peripheral); I27.20 Pulmonary hypertension, unspecified; H53.9 Unspecified visual disturbance; B95.61 Methicillin susceptible Staphylococcus aureus infection as the cause of diseases classified elsewhere; H53.2 Diplopia; S46.219A Strain of muscle, fascia and tendon of other parts of biceps, unspecified arm, initial encounter; Z98.49 Cataract extraction status, unspecified eye; Z88.1 Allergy status to other antibiotic agents; Z87.891 Personal history of nicotine dependence; Z79.01 Long term (current) use of anticoagulants; Z79.52 Long term (current) use of systemic steroids; Z83.79 Family history of other diseases of the digestive system; Z99.81 Dependence on supplemental oxygen; Z79.899 Other long term (current) drug therapy
CPT/HCPCS: 10100; 10195

== ENCOUNTER 2017-10-04 12:09 | Emergency (ER) | payer OTHER, MEDICARE ==
[~2017-10-04] VITALS: Ht 185.4 cm; Wt 95.3 kg
[~2017-10-04 12:09] MED LIST changes: +KEFLEX500 M1 PO
[2017-10-04 15:45] VITALS: BP 130/72
== END 2017-10-04 13:00 | disposition home or self-care (01) ==
LOC: ER 12:09
DX: S91.011A Laceration without foreign body, right ankle, initial encounter (principal); J44.9 Chronic obstructive pulmonary disease, unspecified; I48.91 Unspecified atrial fibrillation; I10 Essential (primary) hypertension; G62.9 Polyneuropathy, unspecified; E03.9 Hypothyroidism, unspecified; G25.81 Restless legs syndrome; I87.2 Venous insufficiency (chronic) (peripheral); Z88.1 Allergy status to other antibiotic agents; Z87.891 Personal history of nicotine dependence; W20.8XXA Other cause of strike by thrown, projected or falling object, initial encounter; Y93.89 Activity, other specified; Y92.89 Other specified places as the place of occurrence of the external cause; Y99.8 Other external cause status

== ENCOUNTER → 2017-10-17 | Outpatient (CLI) | payer OTHER, MEDICARE | LOC: HYPER 06:44 | DX: I87.2 Venous insufficiency (chronic) (peripheral) (principal); L97.811 Non-pressure chronic ulcer of other part of right lower leg limited to breakdown of skin; L97.821 Non-pressure chronic ulcer of other part of left lower leg limited to breakdown of skin; R60.0 Localized edema; I89.0 Lymphedema, not elsewhere classified; I48.91 Unspecified atrial fibrillation; J44.1 Chronic obstructive pulmonary disease with (acute) exacerbation; R06.02 Shortness of breath; I42.9 Cardiomyopathy, unspecified; E78.00 Pure hypercholesterolemia, unspecified; I11.0 Hypertensive heart disease with heart failure; I50.9 Heart failure, unspecified; K21.9 Gastro-esophageal reflux disease without esophagitis; E03.9 Hypothyroidism, unspecified; Z87.891 Personal history of nicotine dependence; Z72.89 Other problems related to lifestyle ==

== ENCOUNTER → 2017-11-08 | Outpatient (CLI) | payer OTHER, MEDICARE | LOC: HYPER 09:37 | DX: S81.811A Laceration without foreign body, right lower leg, initial encounter (principal); I87.2 Venous insufficiency (chronic) (peripheral); I89.0 Lymphedema, not elsewhere classified; R60.0 Localized edema; J44.9 Chronic obstructive pulmonary disease, unspecified; E78.00 Pure hypercholesterolemia, unspecified; I48.91 Unspecified atrial fibrillation; I11.0 Hypertensive heart disease with heart failure; I50.9 Heart failure, unspecified; K21.9 Gastro-esophageal reflux disease without esophagitis; E03.9 Hypothyroidism, unspecified; Z87.891 Personal history of nicotine dependence; Z72.89 Other problems related to lifestyle; X58.XXXA Exposure to other specified factors, initial encounter; Y93.89 Activity, other specified; Y92.89 Other specified places as the place of occurrence of the external cause; Y99.8 Other external cause status ==

== ENCOUNTER → 2017-11-15 | Outpatient (CLI) | payer OTHER, MEDICARE | LOC: HYPER | DX: S81.801D Unspecified open wound, right lower leg, subsequent encounter (principal); I87.2 Venous insufficiency (chronic) (peripheral); I89.0 Lymphedema, not elsewhere classified; I48.91 Unspecified atrial fibrillation; J44.1 Chronic obstructive pulmonary disease with (acute) exacerbation; E78.00 Pure hypercholesterolemia, unspecified; I11.0 Hypertensive heart disease with heart failure; I50.9 Heart failure, unspecified; K21.9 Gastro-esophageal reflux disease without esophagitis; E03.9 Hypothyroidism, unspecified; Z98.49 Cataract extraction status, unspecified eye; Z87.891 Personal history of nicotine dependence; Z72.89 Other problems related to lifestyle; X58.XXXD Exposure to other specified factors, subsequent encounter ==

== ENCOUNTER 2018-03-02 17:56 | Emergency (ER) | payer OTHER, MEDICARE ==
[~2018-03-02] VITALS: Ht 185.4 cm; Wt 83.9 kg
== END 2018-03-02 18:50 | disposition home or self-care (01) ==
LOC: ER 17:56
DX: S61.401A Unspecified open wound of right hand, initial encounter (principal); J44.9 Chronic obstructive pulmonary disease, unspecified; I48.91 Unspecified atrial fibrillation; I42.9 Cardiomyopathy, unspecified; G62.9 Polyneuropathy, unspecified; E03.9 Hypothyroidism, unspecified; I10 Essential (primary) hypertension; Z90.89 Acquired absence of other organs; Z88.1 Allergy status to other antibiotic agents; Z87.891 Personal history of nicotine dependence; W01.198A Fall on same level from slipping, tripping and stumbling with subsequent striking against other object, initial encounter; Y92.89 Other specified places as the place of occurrence of the external cause; Y93.89 Activity, other specified; Y99.8 Other external cause status

== ENCOUNTER → 2018-03-13 | Outpatient (CLI) | payer OTHER, MEDICARE | LOC: HYPER 06:57 | DX: S61.411D Laceration without foreign body of right hand, subsequent encounter (principal); I87.2 Venous insufficiency (chronic) (peripheral); I89.0 Lymphedema, not elsewhere classified; I48.91 Unspecified atrial fibrillation; I42.9 Cardiomyopathy, unspecified; E78.00 Pure hypercholesterolemia, unspecified; I11.0 Hypertensive heart disease with heart failure; I50.9 Heart failure, unspecified; K21.9 Gastro-esophageal reflux disease without esophagitis; E03.9 Hypothyroidism, unspecified; J44.1 Chronic obstructive pulmonary disease with (acute) exacerbation; Z98.49 Cataract extraction status, unspecified eye; Z87.891 Personal history of nicotine dependence; X58.XXXD Exposure to other specified factors, subsequent encounter ==